=== PATIENT | female | born 1970 | race Caucasian/White ===

== ENCOUNTER → 2020-12-17 | Outpatient (CLI) | payer BC, OTHER | LOC: EMI 10:09 | DX: G44.89 Other headache syndrome (principal); G43.909 Migraine, unspecified, not intractable, without status migrainosus; R53.1 Weakness | CPT/HCPCS: 70553; A9577 ==

== ENCOUNTER → 2021-01-06 | Outpatient (CLI) | payer BC, OTHER ==
[2021-01-06 15:31] LABS: HEMOGLOBIN 13.6 gm/dl (12.3-15.3); RED BLOOD COUNT 4.98 M/UL (4.00-5.10)
[2021-01-06 16:08] LABS: BUN/CREATININE RATIO 11 (0-10)
[2021-01-07 08:14] LABS: VITAMIN D, 25-HYDROXY 25.1 ng/mL (30.0-100.0)
[2021-01-07 10:14] LABS: RHEUMATOID ARTHRITIS FACTOR <10.0 IU/mL (0.0-13.9)
[2021-01-08 00:20] LABS: CCP ANTIBODIES IGG/IGA 7 units (0-19)
== END ==
LOC: LAB 13:34
PROVIDERS: Nurse Practitioner Family
DX: E55.9 Vitamin D deficiency, unspecified (principal); D89.9 Disorder involving the immune mechanism, unspecified; M25.50 Pain in unspecified joint; R76.8 Other specified abnormal immunological findings in serum
CPT/HCPCS: 36415; 80053; 82550; 82728; 83520; 84439; 84443; 85025; 85652; 86140; 86200; 86431

== ENCOUNTER → 2021-12-30 | Outpatient (CLI) | payer BC | LOC: EMI 15:44 | DX: M51.16 Intervertebral disc disorders with radiculopathy, lumbar region (principal); M48.061 Spinal stenosis, lumbar region without neurogenic claudication | CPT/HCPCS: 72148 ==

== ENCOUNTER 2022-06-11 23:08 | Emergency (ER) | payer BC ==
[2022-06-12 01:03] LABS: HEMOGLOBIN 14.6 gm/dl (12.3-15.3); RED BLOOD COUNT 5.17 M/UL (4.00-5.10); WHITE BLOOD COUNT 8.7 K/UL (4.5-11.0)
[2022-06-12 01:26] LABS: BUN/CREATININE RATIO 15 (0-10)
[2022-06-12] MEDS ORDERED: ZOFRAN ODT 4 MG4 MG SL (05:09)
[2022-06-12] MEDS ORDERED: OMNICEF 300 MG300 MG PO (05:09)
== END 2022-06-12 05:16 | disposition home or self-care (01) ==
LOC: ER1 23:08
PROVIDERS: Physician Assistant
DX: N39.0 Urinary tract infection, site not specified (principal); I11.9 Hypertensive heart disease without heart failure; E11.9 Type 2 diabetes mellitus without complications; Z88.8 Allergy status to other drugs, medicaments and biological substances; Z20.822 Contact with and (suspected) exposure to COVID-19
CPT/HCPCS: 71045; 80053; 81001; 82550; 82553; 83690; 83880; 84484; 85025; 85379; 85610; 85730; 93005; 99284; U0002